=== PATIENT | female | born 1960 | race Caucasian/White ===

== ENCOUNTER 2019-05-04 20:04 | Emergency (ER) | payer OTHER ==
[2019-05-04 20:56] LABS: Urine Blood 2+ (NEG); Urine Glucose NEGATIVE (NEG); Urine Protein TRACE (NEG); Urine Specific Gravity 1.015 (1.005-1.030)
[2019-05-04 21:03] LABS: Absolute Lymphocytes (CBC) 0.9 K/uL (0.7-4.9); Basophils % 0.8 % (0-1.3); Hematocrit 35.5 % (36.0-45.0); Lymphocytes % 25.3 % (15.3-44.8); MPV 8.6 fL (7.6-11.3); RBC Red Blood Cell Count 3.87 M/uL (3.86-4.86)
[2019-05-04 21:19] LABS: Potassium 3.4 mmol/L (3.5-5.1)
[2019-05-04] MEDS ORDERED: ACETAMINOPHEN 500 MG TAB ONE (21:31)
[2019-05-04] MEDS ORDERED: NA CHLORIDE 0.9% 1,000 ML ONE (21:39)
[2019-05-04] MEDS ORDERED: KETOROLAC 30 MG/ML INJ ONE (21:39)
--- NOTE | 2019-05-04 23:30 | ER ---
Nurse's Notes [facility] Name: Shameka Davis Age: 59 yrs Sex: Female : 1960 Arrival Date: 05/04/2019 Time: 20:08 Bed 18 Private MD: Diagnosis: Abnormal uterine and vaginal bleeding, unspecified Presentation: 05/04 20:30 Presenting complaint: Patient states: She was seen in PCP and diagnosed with the flu, wh stated she had vaginal bleed that started this afternoon, called PCP and was advised to go to ER. Transition of care: patient was not received from another setting of care. Onset of symptoms was May 04, 2019. Risk Assessment: Do you want to hurt yourself or someone else? Patient reports no desire to harm self or others. Initial Sepsis Screen: Does the patient meet any 2 criteria? No. Patient's initial sepsis screen is negative. Does the patient have a suspected source of infection? No. Patient's initial sepsis screen is negative. Care prior to arrival: None. 20:30 Method Of Arrival: Ambulatory 20:30 Acuity: BORIS 3 Historical: - Allergies: 20:57 No Known Allergies; - Home Meds: 20:57 Bupropion Oral once daily [Active]; venlafaxine oral oral 2 times per day [Active]; - PMHx: 20:57 Depression; - PSHx: 20:57 Bone Tumor Removal; - Immunization history:: Adult Immunizations not up to date. - Social history:: Smoking status: Patient/guardian denies using tobacco. - Ebola Screening: : Patient negative for fever greater than or equal to 101.5 degrees Fahrenheit, and additional compatible Ebola Virus Disease symptoms Patient denies exposure to infectious person. Screenin:54 Abuse screen: Denies threats or abuse. Denies injuries from another. Nutritional screening: No deficits noted. Tuberculosis screening: No symptoms or risk factors identified. Fall Risk None identified. Assessment: 20:54 General: Appears in no apparent distress. Behavior is calm, cooperative, appropriate for age. Pain: Denies pain. Neuro: Level of Consciousness is awake, alert, obeys commands, Oriented to person, place, time, situation, Appropriate for age. Cardiovascular: Heart tones S1 S2. Respiratory: Airway is patent Respiratory effort is even, unlabored, Respiratory pattern is regular, symmetrical, Breath sounds are clear bilaterally. GI: Abdomen is flat, non-distended, Abd is soft and non tender X 4 quads. : Reports vaginal bleeding that is. EENT: No signs and/or symptoms were reported regarding the EENT system. Derm: Skin is intact, is healthy with good turgor, Skin is pink, warm \T\ dry. normal. Musculoskeletal: Circulation, motion, and sensation intact. 22:11 Reassessment: Patient appears in no apparent distress at this time. No changes from previously documented assessment. Patient and/or family updated on plan of care and expected duration. Pain level reassessed. Patient is alert, oriented x 3, equal unlabored respirations, skin warm/dry/pink. 23:30 Reassessment: Patient appears in no apparent distress at this time. No changes from previously documented assessment. Patient and/or family updated on plan of care and expected duration. Pain level reassessed. Patient is alert, oriented x 3, equal unlabored respirations, skin warm/dry/pink. Patient denies pain at this time. Patient states feeling better. Patient states symptoms have improved. Vital Signs: 20:45 BP 133 / 64; Pulse 72; Resp 18; Temp 102.1; Pulse Ox 96% ; Weight 111.13 kg; Height 5 wh ft. 3 in. (160.02 cm); 22:11 BP 115 / 53; Pulse 70; Resp 18; Pulse Ox 95% on R/A; wh 23:30 BP 124 / 65; Pulse 63; Resp 18; Pulse Ox 93% on R/A; wh 23:38 Temp 98.4(O); 20:45 Body Mass Index 43.40 (111.13 kg, 160.02 cm) ED Course: 20:08 Patient arrived in ED. jg7 20:15 Tony Yang MD is Attending Physician. tw4 20:24 Marta Subramanian is Primary Nurse. 20:53 Triage completed. 21:00 Arm band placed on right wrist. 21:00 Patient has correct armband on for positive identification. Placed in gown. Bed in low wh position. Call light in reach. Side rails up X 1. Pulse ox on. NIBP on. 21:00 Initial lab(s) drawn, by me, sent to lab. Urine collected: clean catch specimen, clear, jd2 Amount Voided: 50mL. Inserted saline lock: 22 gauge in right antecubital area, using aseptic technique. Blood collected. 22:10 Transvaginal Study Probe In Process Unspecified. EDAK 23:31 Jayy Ray MD is Referral Physician. tw4 23:31 Stefan Muro MD is Referral Physician. tw4 23:49 No provider procedures requiring assistance completed. IV discontinued, intact, bleeding controlled, No redness/swelling at site. Administered Medications: 21:31 Drug: Tylenol 1000 mg Route: PO; 23:35 Follow up: Response: No adverse reaction; Pain is decreased 21:42 Drug: NS 0.9% 1000 ml Route: IV; Rate: 1 bolus; Site: right antecubital; 23:35 Follow up: Response: No adverse reaction; IV Status: Completed infusion 21:42 Drug: TORadol 30 mg Route: IVP; Site: right antecubital; 23:35 Follow up: Response: No adverse reaction Outcome: 23:29 Discharge ordered by . tw4 23:49 Discharged to home ambulatory, with family. 23:49 Condition: stable 23:49 Discharge instructions given to patient, family, Instructed on discharge instructions, follow up and referral plans. POC Demonstrated understanding of instructions, follow-up care, POC 23:50 Patient left the ED. Signatures: Dispatcher [employer] EDMS Marely Wall jd2 Marta Subramanian Tony Yang MD MD tw4 oNreen [email or web address]
--- NOTE | 2019-05-04 23:30 | EDPHYS ---
Physician Documentation [facility] Name: Shameka Davis Age: 59 yrs Sex: Female : 1960 Arrival Date: 05/04/2019 Time: 20:08 Bed 18 Private MD: ED Physician Tony Yang HPI: 05/05 01:04 This 59 yrs old Female presents to ER via Ambulatory with complaints of tw4 Vaginal Bleeding. 01:04 The patient presents with vaginal bleeding that is. Onset: The symptoms/episode tw4 began/occurred today. Modifying factors: The symptoms are alleviated by nothing, the symptoms are aggravated by nothing. Associated signs and symptoms: The patient has no apparent associated signs or symptoms. Severity of symptoms: At their worst the symptoms were mild, in the emergency department the symptoms have improved. The patient is sexually active, reportedly has a single partner, does not use protection during intercourse. The patient has not experienced similar symptoms in the past. Historical: - Allergies: 05/04 20:57 No Known Allergies; - Home Meds: 20:57 Bupropion Oral once daily [Active]; venlafaxine oral oral 2 times per day [Active]; - PMHx: 20:57 Depression; - PSHx: 20:57 Bone Tumor Removal; wh - Immunization history:: Adult Immunizations not up to date. - Social history:: Smoking status: Patient/guardian denies using tobacco. - Ebola Screening: : Patient negative for fever greater than or equal to 101.5 degrees Fahrenheit, and additional compatible Ebola Virus Disease symptoms Patient denies exposure to infectious person. ROS: 05/05 01:04 Positive for vaginal bleeding. tw4 Constitutional: Negative for fever, chills, and weight loss, Eyes: Negative for injury, pain, redness, and discharge, Cardiovascular: Negative for chest pain, palpitations, and edema, Respiratory: Negative for shortness of breath, cough, wheezing, and pleuritic chest pain, Abdomen/GI: Negative for abdominal pain, nausea, vomiting, diarrhea, and constipation, Back: Negative for injury and pain. : Positive for vaginal bleeding, Negative for injury or acute deformity, urinary symptoms, urinary frequency, small amounts, hematuria, pelvic pain, flank pain, burning with urination, difficulty urinating, bladder incontinence, foul smelling urine. Exam: 01:04 Constitutional: This is a well developed, well nourished patient who is awake, alert, tw4 and in no acute distress. Head/Face: Normocephalic, atraumatic. Chest/axilla: Normal chest wall appearance and motion. Nontender with no deformity. No lesions are appreciated. Cardiovascular: Regular rate and rhythm with a normal S1 and S2. No gallops, murmurs, or rubs. Normal PMI, no JVD. No pulse deficits. Respiratory: Lungs have equal breath sounds bilaterally, clear to auscultation and percussion. No rales, rhonchi or wheezes noted. No increased work of breathing, no retractions or nasal flaring. Abdomen/GI: Soft, non-tender, with normal bowel sounds. No distension or tympany. No guarding or rebound. No evidence of tenderness throughout. Back: No spinal tenderness. No costovertebral tenderness. Full range of motion. MS/ Extremity: Pulses equal, no cyanosis. Neurovascular intact. Full, normal range of motion. Neuro: Awake and alert, GCS 15, oriented to person, place, time, and situation. Cranial nerves II-XII grossly intact. Motor strength 5/5 in all extremities. Sensory grossly intact. Cerebellar exam normal. Normal gait. Vital Signs: 05/04 20:45 BP 133 / 64; Pulse 72; Resp 18; Temp 102.1; Pulse Ox 96% ; Weight 111.13 kg; Height 5 wh ft. 3 in. (160.02 cm); 22:11 BP 115 / 53; Pulse 70; Resp 18; Pulse Ox 95% on R/A; wh 23:30 BP 124 / 65; Pulse 63; Resp 18; Pulse Ox 93% on R/A; wh 23:38 Temp 98.4(O); wh 20:45 Body Mass Index 43.40 (111.13 kg, 160.02 cm) MDM: 20:35 Patient medically screened. tw4 05/05 01:04 Differential diagnosis: cervicitis, endometriosis, malignancy, menorrhea, Neoplasm tw4 urinary tract infection. Data reviewed: lab test result(s), CBC, white blood cell count, hemoglobin, hematocrit, platelets, electrolytes, sodium, potassium, chloride, serum bicarbonate, BUN, creatinine, serum glucose, hepatic panel. Data reviewed: radiologic studies, ultrasound. Counseling: I had a detailed discussion with the patient and/or guardian regarding: the historical points, exam findings, and any diagnostic results supporting the discharge/admit diagnosis. Medication response: Toradol relieved patient's pain. The symptoms have resolved. Response to treatment: the patient's symptoms have resolved after treatment, and as a result, I will discharge patient. Special discussion: I discussed with the patient/guardian in detail that at this point there is no indication for admission to the hospital. It is understood, however, that if the symptoms persist or worsen the patient needs to return immediately for re-evaluation. 05/04 20:15 Order name: Basic Metabolic Panel; Complete Time: 21:23 [facility] 05/04 21:23 Interpretation: Normal except: K 3.4; GLUC 123; GFR 67. [facility] 05/04 20:15 Order name: CBC with Diff; Complete Time: 21:23 [facility] 05/04 21:23 Interpretation: Normal except: WBC 3.5; HGB 11.9; HCT 35.5. [facility] 05/04 20:55 Order name: Urine Dipstick--Ancillary (enter results); Complete Time: 21:23 [facility] 05/04 21:23 Interpretation: Normal except: UBLD 2+. [facility] 05/04 20:55 Order name: Urine --Ancillary (enter results); Complete Time: 21:23 2 05/04 21:23 Interpretation: Within normal limits: URINE PREG NEG. [facility] 05/04 21:32 Order name: Transvaginal Study Probe [facility] 05/04 20:15 Order name: IV Saline Lock; Complete Time: 20:50 tw 05/04 20:15 Order name: Labs collected and sent; Complete Time: 20:50 [facility] 05/04 20:15 Order name: NPO; Complete Time: 20:50 [facility] 05/04 20:15 Order name: Urine Dipstick-Ancillary (obtain specimen); Complete Time: 20:59 tw4 Administered Medications: 05/04 21:31 Drug: Tylenol 1000 mg Route: PO; 23:35 Follow up: Response: No adverse reaction; Pain is decreased 21:42 Drug: NS 0.9% 1000 ml Route: IV; Rate: 1 bolus; Site: right antecubital; 23:35 Follow up: Response: No adverse reaction; IV Status: Completed infusion 21:42 Drug: TORadol 30 mg Route: IVP; Site: right antecubital; 23:35 Follow up: Response: No adverse reaction Disposition: 05/04/19 23:29 Discharged to Home. Impression: Abnormal uterine and vaginal bleeding, unspecified. - Condition is Stable. - Discharge Instructions: Abnormal Uterine Bleeding, Dysfunctional Uterine Bleeding. - Medication Reconciliation Form, Thank You Letter, Antibiotic Education, Prescription Opioid Use form. - Follow up: Private Physician; When: Upon discharge from the Emergency Department; Reason: Recheck today's complaints, Continuance of care. Follow up: Jayy Ray MD; When: Upon discharge from the Emergency Department; Reason: Recheck today's complaints, Continuance of care. Follow up: Stefan Muro MD; When: Upon discharge from the Emergency Department; Reason: Recheck today's complaints, Continuance of care. Signatures: Dispatcher [employer] [facility] Marta Subramanian Tony Yang MD MD tw4 Corrections: (The following items were deleted from the chart) 21:32 21:22 Pelvis Complete+US.RAD.BRZ ordered. [facility] 23:31 23:29 05/04/2019 23:29 Discharged to Home. Impression: Abnormal uterine and vaginal tw4 bleeding, unspecified. Condition is Stable. Forms are Medication Reconciliation Form, Thank You Letter, Antibiotic Education, Prescription Opioid Use. Follow up: Private Physician; When: Upon discharge from the Emergency Department; Reason: Recheck today's complaints, Continuance of care. tw4 23:50 23:31 05/04/2019 23:29 Discharged to Home. Impression: Abnormal uterine and vaginal wh bleeding, unspecified. Condition is Stable. Discharge Instructions: Abnormal Uterine Bleeding, Dysfunctional Uterine Bleeding. Forms are Medication Reconciliation Form, Thank You Letter, Antibiotic Education, Prescription Opioid Use. Follow up: Private Physician; When: Upon discharge from the Emergency Department; Reason: Recheck today's complaints, Continuance of care. Follow up: Jayy Ray; When: Upon discharge from the Emergency Department; Reason: Recheck today's complaints, Continuance of care. Follow up: Stefan Muro; When: Upon discharge from the Emergency Department; Reason: Recheck today's complaints, Continuance of care. tw4
[2019-05-05 00:47] VITALS: BP 124/65; O2SAT 93
[2019-05-05 00:48] VITALS: TEMP 98.4
--- NOTE | 2019-05-05 08:22 | RAD REPORT ---
EXAM DESCRIPTION: US - Transvaginal Study Probe - 05/04/2019 10:10 pm CLINICAL HISTORY: Vaginal bleeding COMPARISON: Pelvic ultrasound July 2015, CT abdomen and pelvis September 2015 TECHNIQUE: Endovaginal sonography was performed. FINDINGS: Uterus was not clearly identifiable from the adjacent bowel. Review of prior imaging shows a small uterus. Patient denies hysterectomy surgical history. Uterus may be obscured due to the isoe choic to bowel. Neither ovary was identifiable. No adnexal mass seen. No fluid seen in the pelvis. IMPRESSION: Nonvisualization of the uterus and ovaries due to bowel, atrophy or a combination. As clinical findings warrant, follow-up CT imaging of the pelvis could be performed or MR pelvis imag ing could be performed.
== END 2019-05-04 23:50 | disposition home or self-care (01) ==
LOC: ER 20:04
DX: N93.9 Abnormal uterine and vaginal bleeding, unspecified (principal); F32.9 Major depressive disorder, single episode, unspecified
CPT/HCPCS: 96361; 85025; 80048; 36415; 81025; 81003; 76830; 96374; 99284; J7030

== ENCOUNTER 2019-07-01 06:59 | Day surgery (SDC) | payer OTHER ==
[2019-06-30 14:00] LABS: Absolute Lymphocytes (CBC) 2.5 K/uL (0.7-4.9); Basophils % 0.6 % (0-1.3); Hematocrit 37.5 % (36.0-45.0); Lymphocytes % 42.6 % (15.3-44.8); MPV 8.9 fL (7.6-11.3); RBC Red Blood Cell Count 4.09 M/uL (3.86-4.86)
[2019-07-01] MEDS ORDERED: Ringers Lactate 1,000 ML IV ONE (07:17)
[2019-07-01] MEDS ORDERED: NA CHLORIDE 0.9% 1,000 ML ONE (08:30)
[2019-07-01] MEDS: LIDOCAINE 1% W/EPI 1:100,000 MDV 20 ML VIAL ONE ×2 (08:32→08:39)
[2019-07-01] MEDS ORDERED: FENTANYL CITR 100 MCG/2 ML ONE (08:44)
[2019-07-01] MEDS ORDERED: propofoL 200 MG/20 ML VIAL IV ONE (08:44)
[2019-07-01] MEDS ORDERED: MIDAZOLAM HCL 2 MG/2 ML INJ ONE (08:45)
[2019-07-01] MEDS ORDERED: LIDOCAINE 2% MPF 5 ML VIAL ONE (08:45)
[2019-07-01] MEDS ORDERED: ONDANSETRON 4 MG/2 ML VIAL ONE (08:53)
[2019-07-01] MEDS ORDERED: KETOROLAC 30 MG/ML INJ ONE (08:53)
[2019-07-01] MEDS ORDERED: LIDOCAINE 1% W/EPI 1:100,000 MDV 20 ML VIAL ONE (09:16)
[2019-07-01 09:58] VITALS: BP 137/61; TEMP 96.3; O2SAT 100
[2019-07-01] MEDS ORDERED: CODEINE 30MG/APAP 300MG TAB ONE (10:22)
--- NOTE | 2019-07-01 20:25 | OP ---
Date of Procedure: 07/01/2019 Surgeon: Kely Hawkins MD Preoperative Diagnosis: Postmenopausal bleeding. Postoperative Diagnoses: Postmenopausal bleeding and endometrial polyp. Procedures Performed: Hysteroscopy, polypectomy, dilation and curettage. Anesthesia: General with LMA. Complications: No complications. Drains: No drains. Specimens: Endometrial curettings and tiny polyp. Findings: Patient was recovered from anesthesia and taken to PACU in stable condition. Description Of Procedure: Patient is a 59-year-old with endometrial evaluation in 2016. She had a 6 mm stripe. Recently had complaints of flu and pelvic pain and slight amount of bleeding. She was s ent to the ER and had an evaluation with transvaginal ultrasound where the ultrasound was found to be suboptimal due to patient's body habitus. When she returned to the office for followup on her spott ing/bleeding, there was no pain. Her flu was resolved. No further bleeding. We counseled the patie nt on the fact that she can either have repeat an ultrasound at a different time for evaluation of th e cavity or undergo endometrial sampling so that if there is any atypia or malignancy would be ruled out. She preferred the biopsy route, so she was consented for hysteroscopy D and C in the hospital, possible polypectomy. She was consented and brought to the OR. After re-consenting in the preop, georgina salmeron was taken back to OR, placed in supine fashion after general anesthesia was given per agatha weiner's desire . The time-out was done. She was placed in a dorsal lithotomy position. V ulva, vagina, and perineum were prepped and draped in a sterile fashion. Speculum placed to expose t he cervix. Anterior lip grasped with a single-tooth tenaculum. Cervix entered with the SlimLine hys teroscope. The canal was visualized, then the canal was dilated in its direction and then scope plac ed as the cervix was stenotic. This had to be done. Once scope was placed, there was a polyp at the very tip of the cervix at the internal os and then endometrial cavity was unremarkable and then both tubal ostia visualized. No other masses seen. Diagnostic scope was removed. Operative sheath was placed and using scissors, the base of the polyp was cut. The polyp was retrieved with the hysterosc ope. After the scope was removed, endometrial curettings were performed with a 0 curette. All instr uments were removed. Instrument and sponge counts were done and were correct at the end of the case. The patient tolerated the procedure well. She will follow up with me in 1 week for pathology resul ts. LIZZIE/SORAYA Voice ID: [id number] Report ID: [id number]
== END 2019-07-01 10:40 | disposition home or self-care (01) ==
LOC: OR 06:59
PROVIDERS: ATTEND Obstetrics & Gynecology
PROC: 0UDB7ZX Extraction of Endometrium, Via Natural or Artificial Opening, Diagnostic (ICD-10-PCS; 2019-07-01)
PROC: 0UJD8ZZ Inspection of Uterus and Cervix, Via Natural or Artificial Opening Endoscopic (ICD-10-PCS; 2019-07-01)
PROC: 0UB97ZX Excision of Uterus, Via Natural or Artificial Opening, Diagnostic (ICD-10-PCS; principal; 2019-07-01 08:30)
DX: N95.0 Postmenopausal bleeding (principal); N84.0 Polyp of corpus uteri; E83.51 Hypocalcemia; G47.33 Obstructive sleep apnea (adult) (pediatric); E78.5 Hyperlipidemia, unspecified; F32.9 Major depressive disorder, single episode, unspecified; Z98.84 Bariatric surgery status; Z80.3 Family history of malignant neoplasm of breast; Z80.41 Family history of malignant neoplasm of ovary; Z80.0 Family history of malignant neoplasm of digestive organs
CPT/HCPCS: 85025; 36415; 82310; 81025; 88305; 58558; J2704; J2250; J3010; J7120; J7030; J2405

== ENCOUNTER 2023-03-13 09:39 | Emergency (ER) | payer OTHER ==
--- OUTSIDE RECORDS SUMMARY | 2023-03-13 09:42 | XMS REPORT | Continuity of Care Document ---
:1960 Author Organization [facility] t Address [address] [place] [address] Care Team Providers Name Role Phone Nichole Alarcon Attending Clinician Unavailable GC_TNC_Cherches_I Attending Clinician Unavailable Lupillo Rossi Attending Clinician Unavailable GC_TNC_Cherches_I Admitting Clinician Unavailable Lupillo Rossi Admitting Clinician Unavailable Physician, No Primary or Family Admitting Clinician Unavaila ble Payers Payer Name Policy Type Policy Number Effective Date Expiration Date [place] [id number] 2020 [place] 00:00:00 CHOICE PLUS (PPO) Blue Cross 6 [id number] Common Spiri t Blue [facility] Problems Condition Condition Condition Status Onset Resolution Last Treating Co mments Source Name Details Category Date Date Treatment Clinician Date [id number] [place], [place] [id number] joint, [facility] knee, left [facility] [id number] Rupture of Problem Co mmon anterior Spirit cruciate - [facility] ligament [facility] left [facility] knee, Medical subsequent Center encounter [id number] Primary Problem Comm on osteoarthr Spirit itis of - [facility] left knee [facility] [id number] Other tear Problem Co mmon of medial Spirit meniscus - [facility] of left St knee as [facility] current Medical injury, Center subsequent encounter Allergies, Adverse Reactions, Alerts Allergy Allergy Status Severity Reaction(s) Onset Inactive Treating Comm ents Source Name Type Date Date Clinician No Known DA Active U 2020-05 [facility] All[facility]ie 06-12 [place] [facility] No Known DA Active U 2020-05 [facility] Allergie 06-06 [place] s 00:00: [place] 00 [facility] Social History Social Habit Start Date Stop Date Quantity Comments Source History of Tobacco Use Co mmon [facility] Sex Assigned At Com mon [facility] Smoking Status Start Date Stop Date Source Never Smoker Common [facility] Medications Ordered Filled Start Stop Current Ordering Indication Dosage Frequency Signature Comments Components Source Medication Medication Date Date Medication? Clinician (SIG) Name Name Bupivicaine Bupivicaine 2021-0 No 2.5mg Common Henning Henning 12-01 Spirit 00:00: - [facility] Kenalog Kenalog No 40mg Common (Triamcinol (Triamcinol 7-08 S pirit one) one) 00:00: - [facility] Bupivicaine Bupivicaine 2021-0 No 2.5mg Common Henning Henning 12-01 Spirit 00:00: - [facility] Kenalog Kenalog 2021-0 No 40mg Common (Triamcinol (Triamcinol 7-08 S pirit one) one) 00:00: - [facility] Bupivicaine Bupivicaine 2021-0 No 2.5mg Common Henning Henning 12-01 Spirit 00:00: - [facility] Kenalog Kenalog 2021-0 No 40mg Common (Triamcinol (Triamcinol 7-08 S pirit one) one) 00:00: - 00 [facility] Bupivicaine Bupivicaine 2021-0 No 2.5mg Common Henning Henning 7-08 Spirit 00:00: - [facility] 00 [facility] Kenalog Kenalog 2021-0 No 40mg Common (Triamcinol (Triamcinol 7-08 S pirit one) one) 00:00: - [facility]I [facility] Bupivicaine Bupivicaine 2021-0 No 2.5mg Common Henning Henning 7-08 Spirit 00:00: - [facility] Kenalog Kenalog 2021-0 No 40mg Common (Triamcinol (Triamcinol 7-08 S pirit one) one) 00:00: - [facility] 00 [facility] Blanquita Blanquita No Blanquita Effexor Effexor No Effexor Losartan Losartan No Losartan Potassium Potassium Potassium Vraylar Vraylar No Vraylar Stool Stool No Stool Softener Softener Softener Wellbutrin Wellbutrin No Wellbutrin Losartan Losartan No Losartan Potassium Potassium Potassium Stool Stool No Stool Softener Softener Softener Multivitami Multivitami No Multivitam n n in Effexor Effexor No Effexor Vraylar Vraylar No Vraylar Calcium + Calcium + No Calcium + D3 D3 D3 Wellbutrin Wellbutrin No Wellbutrin Blanquita Blanquita No Blanquita Losartan Losartan No Losartan Potassium Potassium Potassium Stool Stool No Stool Softener Softener Softener Multivitami Multivitami No Multivitam n n in Effexor Effexor No Effexor Vraylar Vraylar No Vraylar Calcium + Calcium + No Calcium + D3 D3 D3 Wellbutrin Wellbutrin No Wellbutrin Blanquita Blanquita No Blanquita Losartan Losartan No Losartan Potassium Potassium Potassium Stool Stool No Stool Softener Softener Softener Multivitami Multivitami No Multivitam n n in Effexor Effexor No Effexor Vraylar Vraylar No Vraylar Calcium + Calcium + No Calcium + D3 D3 D3 Wellbutrin Wellbutrin No Wellbutrin Blanquita Blanquita No Blanquita Calcium + Calcium + No Calcium + D3 D3 D3 Multivitami Multivitami No Multivitam n n in Blanquita Blanquita No Blanquita Effexor Effexor No Effexor Losartan Losartan No Losartan Potassium Potassium Potassium Vraylar Vraylar No Vraylar Stool Stool No Stool Softener Softener Softener Wellbutrin Wellbutrin No Wellbutrin Calcium + Calcium + No Calcium + D3 D3 D3 Multivitami Multivitami No Multivitam n n in Vital Signs Vital Name Observation Time Observation Value Comments Source height 2021-12-20 14:45:00 62 [in_i] [facility] weight 2021-12-20 14:45:00 235 [lb_av] [facility] bmi 2021-12-20 14:45:00 42.98 kg/m2 [facility] blood pressure 2021-12-20 14:45:00 136 mm[Hg] Common [facility] - systolic [facility] blood pressure 2021-12-20 14:45:00 80 mm[Hg] Common [facility] - diastolic [facility] height 2021-12-01 08:00:00 62 [in_i] [facility] weight 2021-12-01 08:00:00 235 [lb_av] [facility] temperature 2021-12-01 08:00:00 98.2 [degF] [facility] bmi 2021-12-01 08:00:00 42.98 kg/m2 [facility] blood pressure 2021-12-01 08:00:00 138 mm[Hg] Common [facility] - systolic [facility] blood pressure 2021-12-01 08:00:00 82 mm[Hg] Common [facility] - diastolic [facility] Procedures This patient has no known procedures. Encounters Start End Encounter Admission Attending Care Care Encounter Source Date/Time Date/Time Type Type Clinicians Facility Department ID 2021-12-12 Outpatient FLACO Alarcon [facility] [id number] Common 08:31:04 [facility] 2021-12-01 Outpatient FLACO Alarcon [facility] [id number] Common 09:07:02 Nichole [id number] [facility] 2022-12-15 2022-12-15 Outpatient GC_TNC_Cher PRIV PRIV [id number] [facility] 00:00:00 00:00:00 ches_I [id number] Medica l 2022-04-10 2022-04-10 (TEL) STLMLC STL[facility]C [id number] Co mmon 00:00:00 00:00:00 [facility] 2021-12-20 2021-12-20 OFFICE STLMLC STLMLC [id number] Co mmon 00:00:00 00:00:00 VISIT EST Spir it PT LEVEL 3 [facility] 2021-12-14 2021-12-14 (TEL) STLMLC STLMLC [id number] Co mmon 00:00:00 00:00:00 [facility] 2021-12-06 2021-12-06 (TEL) STLMLC STLMLC [id number] Co mmon 00:00:00 00:00:00 [facility] 2021-12-01 2021-12-01 OFFICE STLMLC STLMLC [id number] Co mmon 00:00:00 00:00:00 VISIT NEW Spir it PT LEVEL 3 [facility] 2021-08-09 2021-08-09 Outpatient GC_TNC_Cher PRIV PRIV [id number] [facility] 04:41:00 04:41:00 ches_I [id number] Medica l 2021-06-27 2021-06-27 Outpatient GC_TNC_Cher PRIV PRIV [id number] [facility] 03:34:00 03:34:00 ches_I [id number] Medica l 2021-06-27 2021-06-27 Outpatient GC_TNC_Cher PRIV PRIV [id number] [facility] 03:34:00 03:34:00 ches_I [id number] Medica l 2021-06-24 2021-06-24 Outpatient GC_TNC_Cher PRIV PRIV [id number] [facility] 10:27:00 10:27:00 ches_I [id number] Medica l 2021-04-12 2021-04-12 Inpatient KISHOR Avelar [id number] [facility] 06:08:00 06:08:00 [facility] 2021-04-06 2021-04-06 Outpatient MEEK Rossi LABO [id number] [facility] 19:18:00 19:18:00 Tomiko 40 [facility] 2021-03-06 2021-03-06 Outpatient KISHOR Avelar RADI [id number] [facility] 12:04:00 12:04:00 Tomiko [facility] Results Test Description Test Time Test Comments Results Result Comments Source Novel Coronavirus 2018 Inhouse 2021-04-07 09:49:00 Test Item Value Reference Range Interpretation Comme nts Novel Coronavirus 2019 Negative Negative Posit carol results are indicative of the Inhouse (test code = presenc e [id number] RNA, clinical COVNONPUI) correlation wit h patient historyand other diagnosti c information is necessary to de terminepatient infection status. Positiv e results do not rule outbacterial in fection or co-infection with other viru ses. Negative results do not preclude SA RS-CoV-2 infection andshould not b e used as the sole basis for patient man agementdecisions. Negative result s must be combined with otherclinical o bservations, patient history, and ep idemiologicalinformation. Detection of SA RS-CoV-2 RNA may be affected bysamp le collection methods, storage conditi ons, and/or stageof infection. Kasandra l RNA mutations, vaccinations, a ntiviraltherapeutics, antibiotics, ch emotherapeutic orimmunosuppres gilbert drugs have not been evaluated for e ffectson detection. Results are for the identification of SARS-CoV-2 RNA usingthe Watch-[employer] M2000 System under th e FDA Emergency UseAuthorizatio n. The testing is performed by karla rsonneltrained in the procedures for the [employer] moleculardiagno stic SARS-CoV-2 assay in vitro. Novel Coronavirus 2018 [id number] 09:49:00 Test Item Value Reference Range Interpretation Comments Novel Coronavirus Negative Negative Positive r esults are 2019 Inhouse (test indicativ e of the presence code = COVNONPUI) ofSARS-CoV -2 RNA, clinical correlation wit h patient historyand othe r diagnostic info rmation is necessary to determinepatien t infection status. Positiv e results do not rule out bacterial infection or co -infection with other viru ses. Negative result s do not preclude SARS-C oV-2 infection andsh ould not be used as the tamiko e basis for patient managementdecis ions. Negative result s must be combined with otherclinical observations, p atient history, and epidemiological information . Detection of SARS-CoV-2 RNA may be affe cted bysample collec tion methods, storag e conditions, and /or stageof infection. Kasandra l RNA mutations, vacc inations, antiviraltherap eutics, antibiotics, chemotherapeuti c orimmunosuppres gilbert drugs have not been e valuated for effectson d etection. Results are for the identification of SARS-CoV-2 RNA usingthe Watch-Sites M2000 Sy stem under the FDA Emergen cy UseAuthorizatio n. The testing is perf ormed by miko hawk in the procedures for the [employer] M2000 molecular diagnostic SARS-CoV-2 assa y in vitro. - MRI LW JNT W/O CONT [id number] 16:34:00 [facility] : 1960 Sex: F Patient Name: SHAMEKA DAVIS Unit No: [id number] EXAMS: CPT CODE: [id number] [place] LW JNT W/[place] [id number] TECHNIQUE: Multiplanar multisequence MR images through the left ankle were acquired without contrast. COMPARISON: No comparison available. FINDINGS: Bone/ Cartilage: Hindfoot valgus is suspected. No acute fracture. Focal degenerative edema of the navicular is noted at the talonavicular joint. Tendons: Severeposterior tibial tendinosis is demonstrated with a complete tear distally. Tendon retraction measures approximately 2.5 cm. Mild peroneus longus tendinosis is noted without evidence of tear. The Achilles and extensor tendons are maintained. Ligaments: The lateral ligamentous structures are intact. Delt oid and spring ligaments are maintained. Other: No significant joint effusion. The plantar fascia iswithin normal limits. No focal mass is identified. IMPRESSION: 1. Complete tear of the posterior tibial tendon. 2. Peroneus longus tendinosis without evidence of tear. 3. Hindfoot valgus. at 1634 Reported and signed by: Shan Mcgrath M.D. CC: Lupillo Rossi MD Technologist: DAHIANA MONTAGUE RT(R) Transcribed D/ (545) [facility] NAME: SHAMEKA DAVIS [address] [place] [address] PHYS: Lupillo Melendez MD : 1960 AGE: 60 SEX: F [place] [address] LOC: Y.MRI PHONE #:[phone] EXAM DATE: 03/06/2021 STATUS: REG CLI FAX #: [phone] RAD #: D/C DT PAGE 1 Signed Report Patient Name: SHAMEKA DAVIS Unit No: [id number] EXAMS: CPT CODE: [id number] MRI LW JNT W/O CONTLT [id number] (Continued) Orig Print D/T: S: 03/06/2021 (163) [facility] NAME: HARVEY DAVIS [address] [place] [address] PHYS: Lupillo Melendez MD : 1960 AGE: 60 SEX: F [place] [address] LOC: Y.MRI PHONE #: [phone] EXAM DATE: 03/06/2021 STATUS: REG CLI FAX #:[phone] RAD #: D/C DT PAGE 2 Signed Report
[2023-03-13 10:38] LABS: Absolute Lymphocytes (CBC) 1.4 K/uL (0.7-4.9); Hematocrit 35.6 % (36.0-45.0); Lymphocytes % 17.4 % (15.3-44.8); MCV 91.9 fL (80-100); MPV 9.5 fL (7.6-11.3); Platelets 221 thou/uL (152-406); RBC Red Blood Cell Count 3.88 M/uL (3.86-4.86)
[2023-03-13] MEDS ORDERED: MORPHINE 4 MG/ML SYR ONE (11:17)
[2023-03-13] MEDS ORDERED: FAMOTIDINE 20 MG/2 ML VIAL IV ONE (11:17)
[2023-03-13 11:37] LABS: Specific Gravity 1.022 (1.005-1.030); Urine Bacteria None Seen /HPF (<20); Urine Bilirubin NEGATIVE (Negative); Urine Blood Negative (Negative); Urine Clarity Turbid (Clear); Urine Color Yellow (Yellow); Urine Glucose NEGATIVE (Negative); Urine Mucus Slight /HPF (None Seen); Urine Protein NEGATIVE (Negative); Urine RBC <5 /HPF (None Seen); Urine Urobilinogen Normal (Normal)
[2023-03-13 11:43] LABS: Albumin 3.6 g/dL (3.4-5.0); Bilirubin Total 0.5 mg/dL (0.2-1.0); Potassium 3.9 mEq/L (3.5-5.1); Protein, Total 6.9 g/dL (6.4-8.2); Troponin High Sensitivity 18.4 pg/mL (<58.9)
--- NOTE | 2023-03-13 12:26 | RAD REPORT ---
EXAM DESCRIPTION: CTAbdomen Pelvis W Contrast - 03/13/2023 11:57 am CLINICAL HISTORY: Abdominal pain. ABD PAIN COMPARISON: Abdomen Pelvis W Contrast dated 10/07/2015 TECHNIQUE: Biphasic CT imaging of the abdomen and pelvis was performed with 100 ml non-ionic IV cont rast. All CT scans are performed using dose optimization technique as appropriate and may include automated exposure control or mA/KV adjustment according to patient size. FINDINGS: The lung bases are clear.Gastric banding procedure is noted. The liver, spleen, pancreas, adrenal glands and kidneys are within normal limits. Mild gallbladder di stention. No bowel obstruction, free air, free fluid or abscess. Prominent stool is seen retained throughout th e colon. The appendix is normal. No evidence of significant lymphadenopathy. Mild lumbar degenerative changes. IMPRESSION: No acute intra-abdominal or pelvic finding. Gallbladder distension. Moderate stool retained throughout the colon.
--- NOTE | 2023-03-13 14:14 | RAD REPORT ---
EXAM DESCRIPTION: US - Abdomen Exam Limited - 03/13/2023 1:42 pm CLINICAL HISTORY: ruq;Abd pain COMPARISON: Abdomen Pelvis W Contrast dated 03/13/2023 TECHNIQUE: Sonographic grayscale and color flow images of the were obtained. FINDINGS: The gallbladder is markedly distended, demonstrating small amount of sludge and small echo genic calculi. No pericholecystic fluid or gallbladder wall thickening. The common bile duct is rohith l measuring 5 mm. The liver demonstrates no findings of intrahepatic biliary dilatation. IMPRESSION: Distended gallbladder with cholelithiasis. No sonographic evidence of acute cholecystiti s, biliary ductal dilation, or choledocholithiasis.
--- NOTE | 2023-03-13 14:25 | ER ---
Nurse's Notes [facility] Name: Shameka Davis Age: 62 yrs Sex: Female : 1960 Arrival Date: 03/13/2023 Time: 09:39 Bed 20 Private MD: Diagnosis: Other cholelithiasis without obstruction Presentation: 03/13 09:36 Chief complaint: EMS states: PT ARRIVED BY EMS FROM WORK WITH SUDDEN SEVERE ABD PAIN db STARTED 0815 TODAY. PT WITH DIZZINESS, NAUSEA AND COWORKERS STATED PT BECAME PALE. PT GIVEN ZOFRAN 4MG, TORADOL 15 MG AND NS 400 ML BY EMS. Coronavirus screen: Client denies travel out of the [place] in the last 14 days. At this time, the client does not indicate any symptoms associated with coronavirus-19. Ebola Screen: Patient negative for fever greater than or equal to 101.5 degrees Fahrenheit, and additional compatible Ebola Virus Disease symptoms Patient denies exposure to infectious person. Patient denies travel to an Ebola-affected area in the 21 days before illness onset. No symptoms or risks identified at this time. Initial Sepsis Screen: Does the patient meet any 2 criteria? No. Patient's initial sepsis screen is negative. Does the patient have a suspected source of infection? No. Patient's initial sepsis screen is negative. Risk Assessment: Do you want to hurt yourself or someone else? Patient reports no desire to harm self or others. Onset of symptoms was March 13, 2023. 09:36 Method Of Arrival: EMS: [facility] db 09:36 Acuity: BORIS 2 db 09:36 Care prior to arrival: Medication(s) given: Normal saline infusion, 500 mL, zofran 4 db mg, TORADOL 15 MG IV initiated. 20 GA, in the left forearm. Triage Assessment: 09:51 General: Appears in no apparent distress. uncomfortable, Behavior is calm, cooperative. db Pain: Complains of pain in abdomen, EPIGASTRIC. Neuro: Level of Consciousness is awake, alert, obeys commands, Oriented to person, place, time, situation. Neuro: Reports dizziness. Respiratory: Airway is patent Respiratory effort is even, unlabored, Respiratory pattern is regular, symmetrical. GI: Reports upper abdominal pain, nausea. 13:40 General: Appears in no apparent distress. comfortable. db Historical: - Allergies: 09:56 No Known Allergies; db - Home Meds: 09:51 Bupropion Oral once daily [Active]; venlafaxine Oral 2 times per day [Active]; losartan db oral [Active]; atorvastatin oral [Active]; - PMHx: 09:51 Depression; Hypertensive disorder; HIGH CHOLESTEROL; Depressive disorder; db - PSHx: 09:51 LAP BAND; db - Immunization history:: Adult Immunizations unknown. - Social history:: Smoking status: Patient denies any tobacco usage or history of. - Family history:: not pertinent. Screenin:[address] [facility] ED Fall Risk Assessment (Adult) History of falling in the last 3 months, db including since admission No falls in past 3 months (0 pts) Score/Fall Risk Level 0 - 2 = Low Risk Oriented to surroundings, Maintained a safe environment. Abuse screen: Denies threats or abuse. Denies injuries from another. Nutritional screening: No deficits noted. Tuberculosis screening: No symptoms or risk factors identified. Assessment: 09:56 Reassessment: SEE TRIAGE FOR INITIAL ASSESSMENT. db 11:55 Reassessment: PT RETURNED TO ROOM FROM RADIOLOGY. db 11:55 Reassessment: Patient appears in no apparent distress at this time. Patient and/or db family updated on plan of care and expected duration. Pain level reassessed. Patient is alert, oriented x 3, equal unlabored respirations, skin warm/dry/pink. Patient states feeling better. Patient states symptoms have improved. General: Appears in no apparent distress. comfortable, Behavior is calm, cooperative. 12:42 Reassessment: Patient appears in no apparent distress at this time. No changes from kc6 previously documented assessment. Patient and/or family updated on plan of care and expected duration. Pain level reassessed. Patient is alert, oriented x 3, equal unlabored respirations, skin warm/dry/pink. 14:53 Reassessment: Patient appears in no apparent distress at this time. Patient and/or db family updated on plan of care and expected duration. Pain level reassessed. Patient is alert, oriented x 3, equal unlabored respirations, skin warm/dry/pink. Patient states feeling better. Patient states symptoms have improved. General: Appears in no apparent distress. comfortable, Behavior is calm, cooperative. Neuro: Level of Consciousness is awake, alert, obeys commands, Oriented to person, place, time, situation. Respiratory: Airway is patent Respiratory effort is even, unlabored, Respiratory pattern is regular, symmetrical. 14:55 GI: Bowel sounds present X 4 quads. Abd is soft Abdomen is tender to palpation in db epigastric area. Vital Signs: 09:36 BP 158 / 145; Pulse 58; Resp 18; Temp 97.5(O); Pulse Ox 97% on R/A; Weight 83.91 kg; db Height 5 ft. 3 in. ; 10:02 BP 108 / 63; Pulse 58; Resp 16; Pulse Ox 96% on R/A; db 11:12 BP 115 / 67; Pulse 59; Resp 16; Pulse Ox 99% on R/A; db 12:00 BP 122 / 65; Pulse 60; Resp 16; Pulse Ox 100% ; db 12:42 BP 121 / 77; Pulse 61; Resp 18 S; Pulse Ox 99% on R/A; kc6 13:40 BP 110 / 59; Pulse 54; Resp 16; Pulse Ox 99% ; db 14:30 BP 125 / 73; Pulse 54; Resp 16; Pulse Ox 97% on R/A; db 09:36 Body Mass Index 32.77 (83.91 kg, 160.02 cm) db ED Course: 09:47 Patient arrived in ED. db 09:50 Triage completed. db 09:56 Arm band placed on Patient placed in an exam room. db 09:57 Trevor Alex MD is Attending Physician. rt 09:57 Maintain EMS IV. Dressing intact. Good blood return noted. Site clean \T\ dry. Gauge \T\ db site: 20 G LFA. 10:01 Tessy Hernandez RN is Primary Nurse. db 10:30 Troponin High Sensitivity Sent. ds4 10:31 CBC with Diff Sent. ds4 10:31 CMP Sent. ds4 10:31 Lipase Sent. ds4 10:31 Inserted saline lock: 22 gauge in right antecubital area, using aseptic technique. ds4 Blood collected. 11:59 CT Abd/Pelvis - IV Contrast Only In Process Unspecified. EDMS 13:20 US Abdomen Limited In Process Unspecified. EDMS 14:24 Gee Alexander MD is Referral Physician. rt 14:53 Patient has correct armband on for positive identification. Placed in gown. Bed in low db position. Call light in reach. Side rails up X 1. Provided Education on: DISCHARGE. Client placed on continuous cardiac and pulse oximetry monitoring. NIBP monitoring applied. 14:53 No provider procedures requiring assistance completed. IV discontinued, intact, db bleeding controlled, No redness/swelling at site. Administered Medications: 11:20 Drug: Famotidine IVP 20 mg IVP once; dilute with 10 mL 0.9% NaCl; give over 2 minutes db Route: IVP; Site: right antecubital; 12:46 Follow up: Response: No adverse reaction kc6 11:20 Drug: morphine IVP or IV 4 mg IVP once over 4 mins Route: IVP; Infused Over: 4 mins; db Site: right antecubital; 12:45 Follow up: Response: No adverse reaction; Pain is decreased; RASS: Alert and Calm (0) kc6 Medication: 14:53 VIS not applicable for this client. db Outcome: 14:25 Discharge ordered by . rt 14:53 Discharged to home ambulatory, db 14:53 Condition: stable 14:53 Discharge instructions given to patient, Instructed on discharge instructions, follow up and referral plans. Prescriptions given X 2, 14:58 Patient left the ED. db Signatures: Dispatcher [employer] EDMS Jemal Grady ds4 Kimberly Cochran RN RN kc6 Tessy Hernandez RN RN db Trevor Alex MD MD rt
--- NOTE | 2023-03-13 14:25 | EDPHYS ---
Physician Documentation [facility] Name: Shameka Davis Age: 62 yrs Sex: Female : 1960 Arrival Date: 03/13/2023 Time: 09:39 Bed 20 Private MD: ED Physician Trevor Alex HPI: 03/13 11:19 This 62 yrs old Female presents to ER via EMS with complaints of Abdominal Pain. rt 11:19 Patient presents to the ED with an acute onset of an epigastric pain starting about 1 rt hour prior to arrival. This was not after eating. Patient has never had similar pain previously. Pain is nonradiating. Patient received Toradol, Zofran by EMS, states that this modestly improved her pain, still is ongoing pain. Had nausea without vomiting earlier, somewhat improving as well. Denies other acute complaints at this time, symptoms are moderate in severity, no other aggravating or elevating factors.. Historical: - Allergies: 09:56 No Known Allergies; db - Home Meds: 09:51 Bupropion Oral once daily [Active]; venlafaxine Oral 2 times per day [Active]; losartan db oral [Active]; atorvastatin oral [Active]; - PMHx: 09:51 Depression; Hypertensive disorder; HIGH CHOLESTEROL; Depressive disorder; db - PSHx: 09:51 LAP BAND; db - Immunization history:: Adult Immunizations unknown. - Social history:: Smoking status: Patient denies any tobacco usage or history of. - Family history:: not pertinent. ROS: 11:19 Constitutional: Negative for fever, chills, and weight loss, Cardiovascular: Negative rt for chest pain, palpitations, and edema, Respiratory: Negative for shortness of breath, cough, wheezing, and pleuritic chest pain, MS/Extremity: Negative for injury and deformity, Skin: Negative for injury, rash, and discoloration, Neuro: Negative for headache, weakness, numbness, tingling, and seizure, Psych: Negative for depression, anxiety, suicide ideation, homicidal ideation, and hallucinations, 11:19 Abdomen/GI: Positive for abdominal pain, nausea, Exam: 11:19 Constitutional: This is a well developed, well nourished patient who is awake, alert, rt and in no acute distress. Head/Face: Normocephalic, atraumatic. Chest/axilla: Normal chest wall appearance and motion. Nontender with no deformity. No lesions are appreciated. Cardiovascular: Regular rate and rhythm with a normal S1 and S2. No gallops, murmurs, or rubs. Normal PMI, no JVD. No pulse deficits. Respiratory: Lungs have equal breath sounds bilaterally, clear to auscultation and percussion. No rales, rhonchi or wheezes noted. No increased work of breathing, no retractions or nasal flaring. Skin: Warm, dry with normal turgor. Normal color with no rashes, no lesions, and no evidence of cellulitis. MS/ Extremity: Pulses equal, no cyanosis. Neurovascular intact. Full, normal range of motion. Neuro: Awake and alert, GCS 15, oriented to person, place, time, and situation. Cranial nerves II-XII grossly intact. Motor strength 5/5 in all extremities. Sensory grossly intact. Cerebellar exam normal. Normal gait. Psych: Awake, alert, with orientation to person, place and time. Behavior, mood, and affect are within normal limits. 11:19 ECG was reviewed by the Attending Physician. 11:19 Abdomen/GI: Tenderness to the epigastrium without rebound, guarding, distention, Vital Signs: 09:36 BP 158 / 145; Pulse 58; Resp 18; Temp 97.5(O); Pulse Ox 97% on R/A; Weight 83.91 kg; db Height 5 ft. 3 in. ; 10:02 BP 108 / 63; Pulse 58; Resp 16; Pulse Ox 96% on R/A; db 11:12 BP 115 / 67; Pulse 59; Resp 16; Pulse Ox 99% on R/A; db 12:00 BP 122 / 65; Pulse 60; Resp 16; Pulse Ox 100% ; db 12:42 BP 121 / 77; Pulse 61; Resp 18 S; Pulse Ox 99% on R/A; kc6 13:40 BP 110 / 59; Pulse 54; Resp 16; Pulse Ox 99% ; db 14:30 BP 125 / 73; Pulse 54; Resp 16; Pulse Ox 97% on R/A; db 09:36 Body Mass Index 32.77 (83.91 kg, 160.02 cm) db MDM: 09:58 Patient medically screened. rt 16:52 Differential diagnosis: Cholelithiasis, cholecystitis, pancreatitis, bowel obstruction, rt gastritis. Data reviewed: vital signs, nurses notes, lab test result(s), EKG, radiologic studies. I considered the following discharge prescriptions or medication management in the emergency department Medications were administered in the Emergency Department. See MAR. Independent interpretation of the following test(s) in the Emergency Department CT Scan: My interpretation is No bowel obstruction syndrome interpretation of CT scan images. Care significantly affected by the following chronic conditions: Hypertension. Counseling: I had a detailed discussion with the patient and/or guardian regarding the historical points, exam findings, and any diagnostic results supporting the discharge/admit diagnosis, lab results, radiology results, the need for outpatient follow up. Response to treatment: the patient's symptoms have resolved after treatment. 03/13 10:13 Order name: CBC with Diff; Complete Time: 11:19 rt 03/13 10:13 Order name: CMP; Complete Time: 11:44 rt 03/13 10:13 Order name: Lipase; Complete Time: 11:44 rt 03/13 10:13 Order name: Urinalysis w/ reflexes; Complete Time: 11:42 rt 03/13 10:13 Order name: Troponin High Sensitivity; Complete Time: 11:44 rt 03/13 10:13 Order name: CT Abd/Pelvis - IV Contrast Only; Complete Time: 12:27 rt 03/13 12:49 Order name: US Abdomen Limited; Complete Time: 14:16 rt 03/13 10:01 Order name: EKG - Nurse/Tech; Complete Time: 10:07 db 03/13 10:13 Order name: IV Saline Lock; Complete Time: 10:30 rt 03/13 10:13 Order name: Labs collected and sent; Complete Time: 10:30 rt EC:19 Rate is 54 beats/min. Rhythm is regular, Normal Sinus Rhythm with Right bundle branch rt block. QRS [place] is Normal. AR interval is normal. QRS interval is normal. QT interval is normal. No Q waves. Administered Medications: 11:20 Drug: Famotidine IVP 20 mg IVP once; dilute with 10 mL 0.9% NaCl; give over 2 minutes db Route: IVP; Site: right antecubital; 12:46 Follow up: Response: No adverse reaction kc6 11:20 Drug: morphine IVP or IV 4 mg IVP once over 4 mins Route: IVP; Infused Over: 4 mins; db Site: right antecubital; 12:45 Follow up: Response: No adverse reaction; Pain is decreased; RASS: Alert and Calm (0) kc6 Disposition Summary: 03/13/23 14:25 Discharge Ordered Notes: Location: Home rt Condition: Stable rt Diagnosis - Other cholelithiasis without obstruction rt Followup: rt - With: Gee Alexander MD - When: 5 - 6 days - Reason: Discharge Instructions: - Discharge Summary Sheet rt - Cholelithiasis rt Forms: - Medication Reconciliation Form rt - Thank You Letter rt - Antibiotic Education rt - Prescription Opioid Use rt - Patient Portal Instructions rt - Leadership Thank You Letter rt Prescriptions: - acetaminophen-codeine 300-30 mg Oral tablet - take 1 tablet ORAL route every 6 hours; 18 tablet; Refills: 0, Product rt Selection Permitted - ondansetron 4 mg Oral Tablet,disintegrating - take 1 tablet ORAL route every 6 hours; 18 tablet; Refills: 0, Product rt Selection Permitted Signatures: Dispatcher [employer] Tessy Blunt RN RN db Trevor Alex MD MD rt Kimberly Cochran RN kc6
[2023-03-13 17:21] VITALS: BP 108/63; O2SAT 96
--- NOTE | 2023-03-14 13:40 | EKG ---
Test Date: 2023-03-13 Test Time: 10:03:38 Technical Sales Engineer: DENA MEASUREMENT RESULTS: Intervals: Rate: 54 OH: 164 QRSD: 98 QT: 486 QTc: 460 [place]: P: 55 OH: 164 QRS: 36 T: 77 INTERPRETIVE STATEMENTS: Sinus bradycardia Incomplete right bundle branch block Borderline ECG Compared to ECG 04/11/2015 12:18:06 Sinus rhythm no longer present Electronically Signed On 03-14-23 13:37:08 CDT by Saleem Marcelo
== END 2023-03-13 14:58 | disposition home or self-care (01) ==
LOC: ER 09:39
DX: K80.80 Other cholelithiasis without obstruction (principal); I10 Essential (primary) hypertension; F32.A Depression, unspecified; E78.00 Pure hypercholesterolemia, unspecified
CPT/HCPCS: 85025; 81001; 36415; 84484; 83690; 80053; 74177; 76705; Q9967; 93005

== ENCOUNTER 2023-04-03 06:05 | Day surgery (SDC) | payer OTHER, SELFPAY ==
--- NOTE | 2023-03-29 16:06 | RAD REPORT ---
EXAM DESCRIPTION: Lizbeth oJshi (2 Views)03/29/2023 3:54 pm CLINICAL HISTORY: Preop for cholecystectomy. Hypertension COMPARISON: 2014 FINDINGS: The lungs appear clear of acute infiltrate. The heart is normal size IMPRESSION: No acute abnormalities displayed
[2023-03-29 16:36] LABS: Albumin 3.9 g/dL (3.4-5.0); Bilirubin Direct 0.1 mg/dL (0-0.2); Bilirubin Indirect, Calculated 0.2 mg/dL (0.2-0.8); Bilirubin Total 0.3 mg/dL (0.2-1.0); Protein, Total 7.5 g/dL (6.4-8.2)
[2023-04-03] MEDS ORDERED: CEFOXITIN SODIUM 1 GM/VIAL ONE (06:27)
[2023-04-03] MEDS ORDERED: Ringers Lactate 1,000 ML IV ONE (06:27)
[2023-04-03] MEDS ORDERED: HYDROMORPHONE HCL 1 MG/ML INJ ONE (07:30)
[2023-04-03] MEDS ORDERED: SUGAMMADEX SODIUM 200 MG/2 ML VIAL IV ONE (07:30)
[2023-04-03] MEDS ORDERED: SUCCINYLCHOLINE 20 MG/ML (10 ML) IV ONE (07:30)
[2023-04-03 07:32] LABS: Albumin 3.4 g/dL (3.4-5.0); Bilirubin Direct 0.1 mg/dL (0-0.2); Bilirubin Indirect, Calculated 0.2 mg/dL (0.2-0.8); Bilirubin Total 0.3 mg/dL (0.2-1.0); Protein, Total 6.7 g/dL (6.4-8.2)
[2023-04-03] MEDS ORDERED: LIDOCAINE 2% MPF 5 ML VIAL ONE (07:35)
[2023-04-03] MEDS ORDERED: propofoL 200 MG/20 ML VIAL IV ONE (07:35)
[2023-04-03] MEDS ORDERED: ROCURONIUM 50 MG/5 ML VIAL IV ONE (07:35)
[2023-04-03] MEDS ORDERED: FENTANYL CITR 100 MCG/2 ML ONE (07:35)
[2023-04-03] MEDS ORDERED: ONDANSETRON 4 MG/2 ML VIAL ONE (08:02)
[2023-04-03] MEDS ORDERED: dexAMETHasone 4 MG/ML VIAL ONE (08:02)
[2023-04-03] MEDS ORDERED: EPHEDRINE SULF 50 MG/ML VIAL ONE (08:09)
--- NOTE | 2023-04-03 08:20 | P.BOP ---
Preoperative diagnosis: symptomatic cholelithiasis, acute cholecystitis, RUQ abd pain Postoperative diagnosis: same Primary procedure: Laparoscopic cholecystectomy Estimated blood loss: <10cc Specimen: gb Findings: as above Anesthesia: General Complications: None Transferred to: Recovery Room Condition: Good
[2023-04-03] MEDS ORDERED: CODEINE 30MG/APAP 300MG TAB ONE (09:36)
[2023-04-03 10:35] VITALS: TEMP 97.9; O2SAT 98
[2023-04-03 10:36] VITALS: BP 126/78
== END 2023-04-03 10:25 | disposition home or self-care (01) ==
LOC: OR 06:05
PROVIDERS: ATTEND Surgery
PROC: 0FT44ZZ Resection of Gallbladder, Percutaneous Endoscopic Approach (ICD-10-PCS; principal; 2023-04-03 07:30)
DX: K80.10 Calculus of gallbladder with chronic cholecystitis without obstruction (principal); R10.11 Right upper quadrant pain; I10 Essential (primary) hypertension; F32.A Depression, unspecified; G47.30 Sleep apnea, unspecified
CPT/HCPCS: 36415; 71046; 80076; 83690; 88304; J0694; J1100; J1170; J2001; J2405; J2704; J3010; J7120